=== PATIENT | male | born 1965 | race Caucasian/White ===

== ENCOUNTER 2025-01-09 07:45 | Outpatient (CLI) | payer OTHER, SELFPAY ==
[2025-01-09 08:45] VITALS: BP 166/81; PULSE 60; RESP 16; TEMP 36.4; O2SAT 97
[2025-01-09 09:10] VITALS: BP 175/101; PULSE 69; RESP 17; O2SAT 97
[2025-01-09 09:18] VITALS: BP 176/101; PULSE 64; RESP 18; O2SAT 98
[2025-01-09] MEDS: LIDOCAINE 1% (PF) 5 ML INJ (09:22)
[2025-01-09 09:27] VITALS: BP 176/96; PULSE 64; RESP 18; O2SAT 97
--- NOTE | 2025-01-09 12:08 | PM.PROC.IR.1 ---
Date/Time/Diagnoses Date of procedure: 11/28/24 Time of procedure: 09:00 Pre-procedure diagnosis: Cervicothoracic radiculopathy Post-procedure diagnosis: same Procedure Notes Procedure: Interlaminar epidural steroid injection C7-T1 Indications: Cervicothoracic radiculopathy Physician: Cedrick Wheeler Total sedation minutes: 0 Complications: none Procedure in detail & Post-procedure care: Patient is here for the planned procedure today as noted. No significant change since the last office visit. For additional clinical scenario please see those office notes. Focused exam: Vital signs reviewed as charted on intake. Gen: Well developed. No acute distress. CV: RRR, no M/R/G Chest: Non-labored breathing, CTAB. Psych: Alert and well-oriented. Mood/Affect: normal. Patient suitable for the planned procedure today: Yes === The following procedure was performed in the office today: Cervical Epidural Steroid Injection with fluoroscopic guidance - Interlaminar approach (25500) Levels Treated: C7-T1 Approach: interlaminar Soft tissue: [1% lidocaine 2 mL] Test dose: 1% lidocaine 1 mL Injectate: [1.5 mL dexamethasone (10mg/mL), 1 mL lidocaine 1%, 1.5 mL normal saline] Fluoroscopy Agent: Isovue 300-M 1 mL Notes: Left paramedian approach. 3.5 in 20 gauge Touhy needle utilized and adequate. Procedure: After discussing the risks, benefits, and alternatives to the procedure, the patient expressed understanding and wished to proceed. The risks include but are not limited to infection, allergic reaction, nerve damage, stroke, paralysis, epidural hematoma, syncope, headache, respiratory or cardiac arrest, spinal cord injury, and scar formation. Informed consent was obtained and all patient questions were answered. The patient was brought to the procedure suite and placed in the prone position. A pre-procedural pause was conducted to verify: correct patient identity, procedure to be performed and as applicable, correct side and site, correct patient position, and any special requirements. Using a paramedian approach from the side noted above, the region overlying the target was localized under fluoroscopic visualization and the soft tissues overlying this structure were infiltrated with the anesthetic listed above. With fluoroscopic guidance, a #20 gauge Tuohy needle (unless otherwise noted) was inserted into the epidural space using a paramedian approach. The epidural space was localized utilizing intermittent multiplanar fluoroscopic guidance and loss of resistance technique. After negative aspiration, the contrast noted above was injected into the epidural space and the flow of contrast was observed, confirming epidural spread without evidence of intravascular or intrathecal spread. Multi-planar radiographs were obtained for documentation purposes. A test dose of lidocaine was given and the patient was observed for 30-60 seconds. There were no adverse reactions noted. Subsequently, the injectate as noted above was administered into the level noted above. The patient tolerated the procedure well and was discharged after an appropriate period of observation. If there are any complications, the patient was instructed to call us. The patient is to follow-up with the requesting provider in 2-3 weeks/as planned. This note was compiled using voice recognition software and therefore may contain typos. Please contact the author with any questions or concerns.
== END 2025-01-09 09:32 | disposition home or self-care (01) ==
PROVIDERS: PCP Psychiatry & Neurology Forensic Psychiatry; Referring Provider Psychiatry & Neurology Forensic Psychiatry; Visit Provider Physical Medicine & Rehabilitation
DX: M54.13 Radiculopathy, cervicothoracic region (principal)
CPT/HCPCS: 62321; J1100